=== PATIENT | male | born 1990 | race Caucasian/White ===

== ENCOUNTER 2018-10-08 06:56 | Outpatient (CLI) | payer BC ==
--- NOTE | 2018-10-08 08:28 | ULT ---
COMPLETE ABDOMINAL ULTRASOUND: Date: 10/08/18 COMPARISON: None. HISTORY: Elevated ALT/liver enzymes. TECHNIQUE: Multiplanar Longoria scale and color Doppler images were obtained in a complete abdominal ultrasound. FINDINGS: The liver is normal in echogenicity without focal lesions or intrahepatic ductal dilatation. The gall bladder is normal without stones, sludge, gallbladder wall thickening, or pericholecystic fluid. The common bile duct is normal, measuring 5.0 mm. The aorta and inferior vena cava are normal in caliber. Visualized portions of the pancreas are unrem arkable. The spleen is normal in echogenicity without focal lesions and measures 10.0 cm in length. Both kidneys are normal in echogenicity without hydronephrosis or calculi and measure 12.5 and 13.6 c m in length on the right and left, respectively. IMPRESSION: Unremarkable exam. POS: [facility]
== END 2018-10-08 06:57 | disposition home or self-care (01) ==
LOC: BICULT 06:56
PROVIDERS: ATTEND Internal Medicine
DX: R77.8 Other specified abnormalities of plasma proteins (principal); R74.0 Nonspecific elevation of levels of transaminase and lactic acid dehydrogenase [LDH]
CPT/HCPCS: 76700